=== PATIENT | female | born 1975 | race Two or more races ===

== ENCOUNTER 2019-03-03 15:51 | Inpatient (IN) | payer OTHER ==
[~2019-03-03] VITALS: Ht 152.4 cm; Wt 59.0 kg
[2019-03-10] MEDS ORDERED: MAXALT10 MG PO (13:01)
[2019-03-10] MEDS ORDERED: BOTOX COSMETI50 UNIT IM (13:02)
[2019-03-14] MEDS ORDERED: NABUMETONE750 MG PO (16:57)
[2019-03-14] MEDS ORDERED: DOCUSATE SODIU100 MG PO (16:57)
[2019-03-14] MEDS ORDERED: OXYC1TAB9 PO (16:57)
== END 2019-03-14 17:14 | disposition home or self-care (01) | DRG 743 ==
LOC: SURG 03-12 07:00 → OB/GYN 03-12 07:02 → O/R 03-12 07:02 → SURG 03-12 11:15 → OB/GYN 03-12 18:58
PROVIDERS: ADMIT Obstetrics & Gynecology
PROC: 0UT70ZZ Resection of Bilateral Fallopian Tubes, Open Approach (ICD-10-PCS; 2019-03-12)
PROC: 0UT90ZZ Resection of Uterus, Open Approach (ICD-10-PCS; principal; 2019-03-12 07:00)
DX: D25.1 Intramural leiomyoma of uterus (principal); D25.0 Submucous leiomyoma of uterus; D25.2 Subserosal leiomyoma of uterus; N72 Inflammatory disease of cervix uteri